=== PATIENT | male | born 1960 | race Hispanic/Latino ===

== ENCOUNTER 2022-03-15 23:09 | Emergency (ER) | payer SELFPAY ==
[~2022-03-15] VITALS: Ht 165.1 cm; Wt 108.9 kg
[~2022-03-15 23:09] MED LIST: AFRIN30 ML; COZAAR25 MG PO; DEEP SEA45 ML; ESIDRIX25 MG PO; FEOSOL325 MG PO; LISINOPRIL10 MG PO; PROTONIX40 MG/ML PO
[2022-03-15] MEDS ORDERED: OXYMETAZOLINE HCL 0.05% NAS 1 SPRAY BTL ONE (23:40)
[2022-03-16 00:49] VITALS: BP 168/88
== END 2022-03-16 00:22 | disposition home or self-care (01) ==
LOC: ER 23:15
DX: R04.0 Epistaxis (principal); F17.210 Nicotine dependence, cigarettes, uncomplicated
CPT/HCPCS: 99283